=== PATIENT | male | born 1990 | race Caucasian/White ===

== ENCOUNTER 2018-06-23 22:31 | Inpatient (IN) | payer MEDICAID ==
[~2018-06-23] VITALS: Ht 175.3 cm; Wt 117.9 kg
[~2018-06-23 22:31] MED LIST: DEPAKOTE500 MG PO; DOCUSATE CALCI240 MG PO; IBUPROFEN 800800 M1 PO; LEVOTHROID25 MCG PO; REMERON15 MG PO; RISPERDAL M-TAB1 MG PO
[2018-06-23 22:41] VITALS: BP 159/97
[2018-06-23] MEDS ORDERED: NIASPAN 500 MG500 M1 PO (22:42)
[2018-06-23] MEDS ORDERED: HYDROXYZINE HCL25 M2 PO (22:43)
[2018-06-23] MEDS ORDERED: DEPAKOTE ER500 MG PO (22:44)
[2018-06-23] MEDS ORDERED: ALLERGY RELIEF10 M5 PO (22:44)
[2018-06-23] MEDS ORDERED: ZANTAC 150MG T150 MG PO (22:45)
[2018-06-23] MEDS ORDERED: RISPERDAL 1 MG T1 MG PO ×2 (22:45→22:46)
[2018-06-23] MEDS ORDERED: VIIBRYD40 MG PO (22:46)
[2018-06-23] MEDS ORDERED: DOCUSATE CALCI240 MG PO (22:46)
[2018-06-23] MEDS ORDERED: SYNTHROID50 MCG PO (22:47)
[2018-06-23] MEDS ORDERED: TRICOR145 MG PO (22:47)
[2018-06-23 23:12] LABS: ABSOLUTE BASOPHILS 0.1 thou/uL (0.0-0.2); ABSOLUTE EOSINOPHILS 0.2 thou/uL (0.0-0.7); ABSOLUTE MONOCYTES 0.7 thou/uL (0.0-1.2); ABSOLUTE NEUTROPHILS 3.3 thou/uL (1.6-8.1); BASOPHILS 0.8 %; EOSINOPHILS 2.9 %; HEMATOCRIT 38.9 % (42.0-52.0); HEMOGLOBIN 13.1 gm/dL (14.0-18.0); LYMPHOCYTES 40.8 %; MCH 31.4 pg (26.0-34.0); MCHC 33.8 g/dL (28.0-37.0); MONOCYTES 9.7 %; MPV 8.9 fl. (7.2-11.1); NUCLEATED RBCS 0 /100WBC; PLATELET COUNT* 234 thou/uL (150-400); POLYS 45.8 %; RBC 4.18 mil/uL (4.50-6.00); RDW-CV 13.1 % (10.5-14.5); WBC 7.2 thou/uL (4.0-11.0)
[2018-06-23 23:23] LABS: CALCIUM 9.2 mg/dL (8.5-10.1); CREATININE 1.2 mg/dL (0.6-1.3); POTASSIUM 4.2 mmol/L (3.5-5.1)
[2018-06-23 23:28] LABS: ALBUMIN 3.7 g/dL (3.4-5.0); TOTAL BILIRUBIN 0.2 mg/dL (<0.1-1.0); TOTAL PROTEIN 7.5 g/dL (6.4-8.2)
[2018-06-24 01:00] LABS: URINE BILIRUBIN NEGATIVE (Negative); URINE BLOOD NEGATIVE (Negative); URINE CLARITY CLEAR; URINE COLOR YELLOW; URINE GLUCOSE-RANDOM NEGATIVE (Negative); URINE KETONES NEGATIVE (Negative); URINE LEUKOCYTES NEGATIVE (Negative); URINE NITRITE NEGATIVE (Negative); URINE PROTEIN NEGATIVE (Negative); URINE SPECIFIC GRAVITY <= 1.005 (1.005-1.030); URINE UROBILINOGEN 0.2 E.U./dl (0.2-1.0)
[2018-06-24 01:07] LABS: AMP/METHAMP Negative (Negative); BARBITURATES Negative (Negative); BENZODIAZEPINES Negative (Negative); COCAINE Negative (Negative); METHADONE Negative (Negative); OPIATES POSITIVE (Negative); PCP Negative (Negative); THC Negative (Negative)
[2018-06-24 02:10] VITALS: BP 122/72
[2018-06-24 02:26] VITALS: BP 165/78
[2018-06-24 07:45] VITALS: BP 119/60
[2018-06-24 16:00] VITALS: BP 120/68
[2018-06-25 00:22] VITALS: BP 129/71
[2018-06-25 08:45] VITALS: BP 149/83
[2018-06-25 16:13] VITALS: BP 126/72
[2018-06-25 23:27] VITALS: BP 147/84
[2018-06-26 07:50] VITALS: BP 129/72
[2018-06-26 13:26] VITALS: BP 129/72
--- NOTE | 2018-07-03 11:22 | CON ---
[address] [address] CONSULTATION Name: INÉS MARCIAL Room: [address] IN M.R.#: [id number] Admission: 06/24/18 Attend Phys: Matheus Feldman MD Discharge: 06/26/18 Date of : 89 Report #: [id number] THIS REPORT FOR: //name// CC: Matheus Feldman [facility] physician/PCP HISTORY OF PRESENT ILLNESS: The patient is a pleasant 27-year-old male with past medical history significant for seizures, developmental delay, hyperlipidemia, hypothyroidism, and hypertension, who presented to the hospital with abdominal pain. The patient reports he has had abdominal pain for the last 5 days. He reports the pain is located in the upper abdomen and radiates to both right and left subcostal regions. The patient reports the pain is severe and is worse with food. He denies any significant vomiting, although he does report nausea. The patient denies any change in his bowel movements. He denies any fevers or chills or recent weight loss. The patient denies similar episodes in the past. PAST MEDICAL HISTORY: As mentioned above. The patient has a past medical history of seizures, developmental delay, hypertension, hyperlipidemia, and hypothyroidism. PAST SURGICAL HISTORY: None. SOCIAL HISTORY: The patient denies alcohol or recreational drug use, but does report smoking. FAMILY HISTORY: Unable to obtain, as the patient does not have significant recollection. REVIEW OF SYSTEMS: A comprehensive 10-point review of systems is negative except what was mentioned in HPI. PHYSICAL EXAMINATION: VITAL SIGNS: Temperature 38.9, pulse rate 67, respirations 15, blood pressure 120/68, pulse ox 96%. GENERAL: The patient is alert, awake, oriented times 3. HEENT: Pupils are equal, round, reactive to light and accommodation. Mucous membranes are moist. There is no congestion. LUNGS: Clear to auscultation. NECK: Supple. There is no supraclavicular lymphadenopathy. CARDIOVASCULAR: Rate and rhythm regular. S1, S2 present. ABDOMEN: Soft. There is no distention, no tenderness, no guarding or rigidity. Bowel sounds are present. EXTREMITIES: Warm and well perfused. There is no edema. SKIN: Warm and dry. LABORATORY DATA: Hemoglobin 13.1, hematocrit 38.9, WBC count 7.2, [place] [address] CONSULTATION Name: INÉS MARCIAL Kelly Room: [address]#: [id number] Admission: 06/24/18 Attend Phys: Matheus Feldman MD Discharge: 06/26/18 Date of : 89 Report #: [id number] count 234. Sodium 140, potassium 4.2, chloride 105, bicarbonate 28, BUN 14, creatinine 1.0, glucose 122, total bilirubin 0.2, AST 21, ALT 123, alkaline phosphatase 61, lipase 4111. IMAGING DATA: CT abdomen and pelvis less: Pancreas appears homogenously. There is just mild inflammation surround pancreas, suspicious for mild interstitial edematous pancreatitis. ASSESSMENT AND PLAN: 1. This is a very pleasant 27-year-old male with past medical history as outlined above, presenting with epigastric abdominal pain, was found to have pancreatitis on CT scan along with lipase of 4000. 2. Mild acute pancreatitis without liver complications. 3. Continue conservative management for the pancreatitis. Start the patient on clear liquid diet and this can be advanced as he tolerates it. No further intervention indicated at this time. I do not suspect the patient's pancreatitis is related to alcohol use, as the patient reports he just had 1 drink 1 week back. <ELECTRONICALLY SIGNED> By: Ashkan Ross MD 07/03/18 [id number] Ross MD /nt
== END 2018-06-26 14:00 | disposition home or self-care (01) | DRG 440 ==
LOC: M.ERS 22:31 → M.3W 06-24 01:22 → M.TBA-ER 06-24 01:22 → M.3W 06-24 02:10
PROVIDERS: Nurse Practitioner Family; ADMIT Internal Medicine
DX: K85.90 Acute pancreatitis without necrosis or infection, unspecified (principal); F17.210 Nicotine dependence, cigarettes, uncomplicated; E78.5 Hyperlipidemia, unspecified; E03.9 Hypothyroidism, unspecified; F31.9 Bipolar disorder, unspecified; I10 Essential (primary) hypertension; R62.50 Unspecified lack of expected normal physiological development in childhood; R41.3 Other amnesia; E83.42 Hypomagnesemia; Z79.899 Other long term (current) drug therapy; Z23 Encounter for immunization